=== PATIENT | female | born 1960 | race Caucasian/White ===

== ENCOUNTER 2017-01-13 09:16 | Emergency (ER) | payer OTHER, BC ==
--- NOTE | 2017-01-13 09:25 | C.PDOC ---
History Of Present Illness 56 yr old female presents to the ER with complaints of "burning" rash to the right lower abdomen for 1 day. Patient denies any medical history, associated symptoms, fever, chest pain, SOB, vision changes, nausea, vomiting, headache, weakness or numbness. Time Seen by Provider: 01/13/17 09:17 History Per: Patient History/Exam Limitations: no limitations Onset/Duration Of Symptoms: Days (1) Current Symptoms Are (Timing): Still Present Past Medical History Reviewed: Historical Data, Nursing Documentation, Vital Signs Vital Signs: Last Vital Signs Temp 97.9 F 01/13/17 09:22 Pulse 66 01/13/17 09:22 Resp 18 01/13/17 09:22 BP 151/89 H 01/13/17 09:22 Pulse Ox 100 01/13/17 09:22 - Medical History PMH: HTN, Hypercholesterolemia, Kidney Stones (REMOVED 30 YEARS AGO) - [facility] Procedures CYSTOCELE REPAIR (08/29/05) EXC LES SOFT TISSUE NEC (03/04/06) INJECT/INFUSE NEC (05/31/07) LOCAL EXCIS BREAST LES (04/17/00) SUPRAPUBIC SLING OP (08/29/05) Family History: States: No Known Family Hx Review Of Systems Except As Marked, All Systems Reviewed And Found Negative. Constitutional: Negative for: Fever Eyes: Negative for: Vision Change Cardiovascular: Negative for: Chest Pain Respiratory: Negative for: Shortness of Breath Gastrointestinal: Negative for: Nausea, Vomiting Skin: Positive for: Rash (Burning rash to right lower abdomen ) Neurological: Negative for: Weakness, Numbness, Headache Physical Exam - Physical Exam Appears: Non-toxic, No Acute Distress Skin: Warm, Dry, Rash (3cm area of visicular rash to the right lower abdomen ) Head: Atraumatic, Normacephalic Oral Mucosa: Moist Throat: Normal, No Erythema, No Exudate, No Drooling Chest: Symmetrical, No Tenderness Cardiovascular: Rhythm Regular, No Murmur Respiratory: Normal Breath Sounds, No Rales, No Rhonchi, No Wheezing Gastrointestinal/Abdominal: Normal Exam, Soft, No Tenderness, No Guarding, No Rebound Extremity: Normal ROM, No Swelling Neurological/Psych: Oriented x3, Normal Speech, Normal Motor Disposition - Disposition Disposition: HOME/ ROUTINE Disposition Time: 09:40 Condition: GOOD Additional Instructions: Please follow up with your doctor. Return to the ER for any worsening symptoms, rash that spreads to both sides or multiple parts of your body, fever, or for any other concerns. Prescriptions: Acyclovir [Zovirax] 800 mg PO 5XD #35 tab Instructions: Shingles (ED) Forms: Work Excuse - Clinical Impression Clinical Impression: Herpes zoster - Dylanibe Statement The provider has reviewed the documentation as recorded by the Jie Perez Provider Attestation: All medical record entries made by the Jie were at my direction and personally dictated by me. I have reviewed the chart and agree that the record accurately reflects my personal performance of the history, physical exam, medical decision making, and the department course for this patient. I have also personally directed, reviewed, and agree with the discharge instructions and disposition.
[2017-01-13 09:32] VITALS: BP 151/89; PULSE 66; RESP 18; TEMP 97.9; O2SAT 100; BMI 28.3
== END 2017-01-13 10:02 | disposition home or self-care (01) ==
LOC: C.ER 09:16
DX: B02.9 Zoster without complications (principal)